=== PATIENT | male | born 1960 | race Two or more races ===

== ENCOUNTER 2016-08-28 02:14 | Emergency (ER) | payer MEDICARE ==
--- NOTE | ~2016-08-28 | CT2 ---
[facility] A Service of [facility] RADIOLOGY TEXT RESULTS PATIENT: EDILIA KATZ LOCATION: [facility] : 64 UNIT #: [id number] AGE: [address]: Lazaro Troy SEX: M ORDER DR: [id number] [facility] [address] [place], [place] [address] [id number] MR#: [id number] Acc #: [id number] NAME: EDILIA KATZ : 1960 SEX: M STUDY DATE/TIME: 08/28/2016 5:33 UNIT: [facility] ROOM: STUDY DESCRIPTION: CT Abd and Pelv W Cont Attending Physician: Lazaro Troy P.A.-C. Ordering Physician: Lazaro Troy P.A.-C. Primary Care Physician: Pasquale Johnston M.D. MEDICAL IMAGING REPORT This report is preliminary unless electronic signature is present EXAM CT of the abdomen and pelvis with contrast HISTORY Left upper quadrant abdominal pain since yesterday with fever. COMPARISON 07/09/2011 TECHNIQUE The patient was given 100 mL of Isovue-370 and axial 5.0 mm images were obtained through the abdomen and pelvis. This CT exam was performed with one or more of the following radiation dose reduction techniques: automatic exposure control, adjustment of mA and/or kV according to patient size, and iterative reconstruction. FINDINGS The lung bases are clear. The stomach is distended and filled mostly with fluid. The liver, gallbladder, spleen, pancreas, adrenal glands and kidneys are normal in appearance. The aorta is normal in size. There is fluid throughout most of the small bowel. There is fluid in the colon all the way down to the rectum. The appendix is normal. The bladder and prostate gland are normal. The bones are unremarkable. IMPRESSION 1. There is distension of the stomach primarily with fluid and there is mild fluid distension of the small and large bowel. There is no evidence of obstruction. 2. Normal appendix. 3. Otherwise normal. [facility] A Service of [facility] RADIOLOGY TEXT RESULTS PATIENT: EDILIA KATZ LOCATION: [facility] : 64 UNIT #: [id number] AGE: [address]: Lazaro Troy SEX: M ORDER DR: Dictated by... Juan Goodman M.D. THIS IS AN ELECTRONICALLY VERIFIED REPORT Juan Goodman M.D. at 08/28/2016 1:32 PM Rosemary TD: 08/28/2016 09:41 JOB #: [id number] MEDICAL IMAGING REPORT Page 1 of 1 COPY
--- NOTE | ~2016-08-28 | EKG ---
PATIENT: AHMIC, EZEDIN UNIT #: [id number] Ventricular Rate: 86 BPM Atrial Rate: 86 BPM P-R Interval: 132 ms QRS Duration: 98 ms Q-T Interval: 376 ms QTC Calculation(Bezet): 449 ms P [place]: 18 degrees Calculated R [place]: 103 degrees Calculated T [place]: 8 degrees Diagnosis Line: Normal sinus rhythm Diagnosis Line: Rightward axis Diagnosis Line: Cannot rule out Inferior infarct , age Diagnosis Line: undetermined Diagnosis Line: Abnormal ECG Diagnosis Line: No previous ECGs available Diagnosis Line: Confirmed by DONTA KATZ MD ([id number]) on Diagnosis Line: 08/28/2016 9:06:02 AM INTERPRETING MD: GIANNA CHIRINOS
[~2016-08-28 02:14] MED LIST: ACTOS PO; ASPIR-TRIN325 MG PO; GLUCOTROL PO; LEXAPRO PO; TOPROL XL PO
[2016-08-28 03:20] LABS: BASOPHIL% 0.3 % (0-2.5); DIFF IND NO; EOSINOPHIL# 0.1 X10e3 (0-0.7); EOSINOPHIL% 0.9 % (0.0-7.0); HEMOGLOBIN 17.7 gm/dL (13.0-16.0); LYMPHOCYTE# 2.4 X10e3 (1.0-3.5); LYMPHOCYTE% 30.4 % (17.0-45.0); MEAN CORPUSCULAR HEMOGLOBIN 29.7 PG (28-34); MEAN CORPUSCULAR HGB CONC 33.4 g/dL (30-36); MEAN PLATELET VOLUME 7.4 FL (6.5-11.5); MONOCYTE# 0.4 X10e3 (0-1.0); MONOCYTE% 4.9 % (3.0-12.0); NEUTROPHIL% 63.5 % (40-75); PLATELET COUNT 318 X10e3 (140-420); RED BLOOD COUNT 5.96 X10e (3.90-5.60); WHITE BLOOD COUNT 7.8 X10e3 (4.0-10.5)
[2016-08-28 03:50] LABS: ALBUMIN SERUM 5.4 g/dL (3.5-5.0); BILIRUBIN,INDIRECT 0.5 mg/dL (0.0-0.9); BILIRUBIN,TOTAL 0.6 mg/dL (0.2-2.0); BUN/CREATININE RATIO 17.69; CALCIUM SERUM 9.9 mg/dL (8.4-10.2); CREATININE SERUM 1.3 mg/dL (0.6-1.4); GLOM FILT RATE Estimated 62.3 mL/min (>60); POTASSIUM 3.8 mmol/L (3.5-5.1); PROTEIN TOTAL SERUM 9.6 g/dL (6.0-8.3)
[2016-08-28 03:51] LABS: BILIRUBIN, DIRECT 0.1 mg/dL (0.0-0.2)
[2016-08-28 04:49] LABS: POC - CKMB <1.0 ng/mL (0.0-7.9); POC - TROPONIN <0.05 ng/mL (<=0.05)
[2016-08-28 05:05] LABS: URINE SOURCE CLEAN CATCH
[2016-08-28 05:21] LABS: POC - CKMB <1.0 ng/mL (0.0-7.9); POC - TROPONIN <0.05 ng/mL (<=0.05)
[2016-08-28 06:20] LABS: URINE APPEARANCE CLEAR; URINE BILIRUBIN NEG (NEG); URINE BLOOD NEG (NEG); URINE COLOR YELLOW; URINE GLUCOSE 1000 MG/DL (NORM); URINE KETONE NEG (NEG); URINE LEUKOCYTE ESTERASE NEG (NEG); URINE NITRATE NEG (NEG); URINE PROTEIN 1+ (NEG); URINE UROBILINOGEN NORM (NORM)
[2016-08-28 06:37] LABS: CULTURE INDICATED? NO; U HYALINE CASTS AUWI 0-2 /[LPF]; URINE AMORPHOUS SEDIMENT AMORP URATES; URINE MUCUS PRESENT; URINE SPERM PRESENT; UWBCS1 AUWI 0-2 (0-5)
== END 2016-08-28 07:52 | disposition home or self-care (01) ==
LOC: CED 02:14
PROVIDERS: Physician Assistant
DX: R11.2 Nausea with vomiting, unspecified (principal); R10.13 Epigastric pain; R19.7 Diarrhea, unspecified; R06.02 Shortness of breath; E11.9 Type 2 diabetes mellitus without complications; E78.5 Hyperlipidemia, unspecified; I11.9 Hypertensive heart disease without heart failure; I51.9 Heart disease, unspecified; Z95.1 Presence of aortocoronary bypass graft
CPT/HCPCS: 36415; 74177; 80048; 80076; 81003; 82553; 83690; 84484; 85025; 93005; 96361; 96374; 99284; J2405; Q9967